=== PATIENT | female | born 1955 | race Caucasian/White ===

== ENCOUNTER 2023-08-21 10:40 | Inpatient (IN) | payer OTHER, MEDICAID ==
[~2023-08-21] VITALS: Ht 167.6 cm; Wt 87.7 kg
[2023-08-21] MEDS ORDERED: LISI20TA28 PO (10:52)
[2023-08-21] MEDS: normal saline 1000ML IV soln IVB ONE ×3 (11:36→14:34)
[2023-08-21 12:10] LABS: BASOPHILS # (AUTO) 0.1 X10'3 (0-0.2); BASOPHILS % (AUTO) 1.2 % (0-1); EOSINOPHILS # (AUTO) 0.3 X10'3 (0-0.9); EOSINOPHILS % (AUTO) 3.6 % (0-6); HEMATOCRIT 41.8 % (35.0-45.0); LYMPHOCYTES # (AUTO) 1.2 X10'3 (1.1-4.8); LYMPHOCYTES % (AUTO) 12.8 % (21-51); MEAN CORPUSCULAR HEMOGLOBIN 29.9 PG (27.0-31.0); MEAN CORPUSCULAR HGB CONC 33.5 g/dL (33.0-36.5); MEAN CORPUSCULAR VOLUME 89.3 FL (78-98); MEAN PLATELET VOLUME 8.2 FL (7.4-10.4); MONOCYTES # (AUTO) 0.7 X10'3 (0-0.9); MONOCYTES % (AUTO) 7.5 % (2-12); NEUTROPHILS # (AUTO) 6.8 X10'3 (1.8-7.7); NEUTROPHILS % (AUTO) 74.9 % (42-75); PLATELET COUNT 220 X10'3 (140-440); RED BLOOD COUNT 4.68 X10'6 (4.20-5.60); RED CELL DISTRIBUTION WIDTH 13.3 % (11.5-14.5); WHITE BLOOD COUNT 9.1 X10'3 (4.5-11.0)
[2023-08-21 12:35] LABS: ALBUMIN 3.6 G/DL (3.4-5.0); ANION GAP 13 (8-16); BLOOD UREA NITROGEN 12 MG/DL (7-18); BUN/CREATININE RATIO 7.7 (10.0-20.0); CHLORIDE 107 MMOL/L (99-107); CREATININE 1.55 MG/DL (0.40-0.90); GLUCOSE 98 MG/DL (70-104); POTASSIUM 3.2 MMOL/L (3.5-5.1); PRO BRAIN NATRIURETIC PEPTIDE 97 PG/ML (0-125); SODIUM 143 MMOL/L (135-145); TOTAL CARBON DIOXIDE 23.5 MMOL/L (24-32); eCRCL 32 ML/MIN; eGFR 33 ML/MIN
[2023-08-21] MEDS: lisinopril 10 MG tablet PO ONE (12:35)
[2023-08-21] MEDS ORDERED: OXYB5TAB21 PO (12:41)
[2023-08-21 13:27] LABS: D-DIMER 7.72 MG/L FEU (0-0.50)
[2023-08-21] MEDS ORDERED: heparin 10,000 units/1 ML INJ IV ONE (14:10)
[2023-08-21] MEDS ORDERED: iohexol 350MG/ML 100ml bottle IV ONE (14:32)
[2023-08-21 14:35] LABS: APTT 25 SECONDS (22-32); PROTHROMBIN TIME 10.9 SECONDS (9.0-12.0)
[2023-08-21] MEDS: aspirin 81mg tab.chew PO ONE (14:36)
[2023-08-21] MEDS: heparin 10,000 units/1 ML INJ IV ONE (15:04)
[2023-08-21] MEDS: MESSAGE TO NURSING IV ONE ×2 (15:05→23:03)
[2023-08-21] MEDS: heparin 25,000 UNIT/250ml bag 250 ML IV PRN (15:06)
[2023-08-21] MEDS ORDERED: ondansetron/PF 4mg/2ml inj IV PRN (15:35)
[2023-08-21] MEDS ORDERED: bisacodyl 10mg suppository rectal RC PRN (15:35)
[2023-08-21] MEDS ORDERED: HYDROcodone/acetaminophen 5mg/325mg tablet PO PRN (15:35)
[2023-08-21] MEDS ORDERED: diphenhydrAMINE 25mg capsule PO PRN (15:35)
[2023-08-21] MEDS ORDERED: diphenhydrAMINE 50 mg/ml inj IV PRN (15:35)
[2023-08-21] MEDS ORDERED: mag hydrox/Alum hydrox/simeth 30ml oral suspension PO PRN (15:35)
[2023-08-21] MEDS ORDERED: acetaminophen 325mg tablet PO PRN ×2 (15:35)
[2023-08-21] MEDS ORDERED: ondansetron 4mg rapidly disintigrating tab PO PRN (15:35)
[2023-08-21] MEDS ORDERED: magnesium hydroxide 30ml (MOM) UD suspension PO PRN (15:35)
[2023-08-21] MEDS: normal saline 1000ml 1,000 ML IV SCH (15:35)
[2023-08-21] MEDS ORDERED: morphine 2 MG/ML inj. syringe IV PRN ×2 (15:35)
[2023-08-21] MEDS ORDERED: HYDROcodone/acetaminophen 10/325mg tab PO PRN (15:35)
[2023-08-21] MEDS ORDERED: potassium Cl 20 mEq SR tablet PO PRN (15:40)
[2023-08-21] MEDS ORDERED: potassium Cl 40MEQ/1/2NS 520ml 520 ML IV PRN (15:40)
[2023-08-21 16:35] LABS: CREATINE KINASE 31 U/L (26-192); LIPASE 39 U/L (16-77); PHOSPHORUS 1.9 MG/DL (2.3-4.5); THYROID STIMULATING HORMONE 1.21 ulU/ml (0.34-4.50)
[2023-08-21] MEDS ORDERED: sodium phosphate inj. 30 MMOL in dextrose 5%-water 250 ML IV PRN (17:35)
[2023-08-21] MEDS ORDERED: Neutra Phos packet PO PRN (17:35)
[2023-08-21] MEDS ORDERED: sodium phosphate inj. 15 MMOL in dextrose 5%-water 250 ML IV PRN (17:35)
[2023-08-21] MEDS: potassium Cl 20 mEq SR tablet PO STA (17:41)
[2023-08-21 19:30] VITALS: BP 164/90; PULSE 81; RESP 26; TEMP 98; O2SAT 97
[2023-08-21 19:36] LABS: PRO BRAIN NATRIURETIC PEPTIDE 299 PG/ML (0-125)
[2023-08-21] MEDS: docusate sod 100mg capsule PO SCH (19:44)
[2023-08-21 20:00] VITALS: RESP 26; O2SAT 94
[2023-08-21] MEDS ORDERED: temazepam 15mg capsule PO PRN (21:00)
[2023-08-21 22:00] VITALS: BP 155/89; PULSE 75; RESP 16; TEMP 98.3; O2SAT 96
[2023-08-21] MEDS: potassium Cl 20 mEq SR tablet PO PRN (23:11)
[2023-08-21] MEDS: K and/or MAG REPLACEMENT MC SCH (23:14)
[2023-08-22] VITALS (11 sets, daily range): BP systolic 145–181; BP diastolic 73–95; PULSE 61–78; RESP 15–26; TEMP 97–98.3; O2SAT 94–99
[2023-08-22 02:38] LABS: BASOPHILS # (AUTO) 0.1 X10'3 (0-0.2); BASOPHILS % (AUTO) 1.3 % (0-1); EOSINOPHILS # (AUTO) 0.4 X10'3 (0-0.9); EOSINOPHILS % (AUTO) 4.1 % (0-6); HEMATOCRIT 38.6 % (35.0-45.0); LYMPHOCYTES # (AUTO) 1.6 X10'3 (1.1-4.8); LYMPHOCYTES % (AUTO) 17.1 % (21-51); MEAN CORPUSCULAR HEMOGLOBIN 29.9 PG (27.0-31.0); MEAN CORPUSCULAR HGB CONC 33.7 g/dL (33.0-36.5); MEAN CORPUSCULAR VOLUME 88.7 FL (78-98); MEAN PLATELET VOLUME 8.1 FL (7.4-10.4); MONOCYTES # (AUTO) 0.6 X10'3 (0-0.9); MONOCYTES % (AUTO) 6.8 % (2-12); NEUTROPHILS # (AUTO) 6.7 X10'3 (1.8-7.7); NEUTROPHILS % (AUTO) 70.7 % (42-75); PLATELET COUNT 213 X10'3 (140-440); RED BLOOD COUNT 4.35 X10'6 (4.20-5.60); RED CELL DISTRIBUTION WIDTH 13.7 % (11.5-14.5); WHITE BLOOD COUNT 9.5 X10'3 (4.5-11.0)
[2023-08-22 02:56] LABS: ALANINE AMINOTRANSFERASE 21 U/L (12-78); ALBUMIN/GLOBULIN RATIO 0.8 (1.1-1.5); ALKALINE PHOSPHATASE 107 IU/L (46-116); ANION GAP 5 (8-16); ASPARTATE AMINO TRANSFERASE 14 U/L (10-37); BILIRUBIN,TOTAL 0.4 MG/DL (0.1-1.0); BLOOD UREA NITROGEN 11 MG/DL (7-18); BUN/CREATININE RATIO 7.6 (10.0-20.0); CALCIUM 8.9 MG/DL (8.5-10.1); CHLORIDE 111 MMOL/L (99-107); CHOL/HDL RATIO 3.3 (0.00-4.99); CHOLESTEROL 137 MG/DL (0-200); CREATININE 1.45 MG/DL (0.40-0.90); GLUCOSE 108 MG/DL (70-104); HDL CHOLESTEROL 42 MG/DL (35-60); LDL CHOLESTEROL 79 MG/DL (50-100); SODIUM 143 MMOL/L (135-145); TOTAL CARBON DIOXIDE 26.9 MMOL/L (24-32); TOTAL PROTEIN 6.6 G/DL (6.4-8.2); TRIGLYCERIDES 109 MG/DL (20-135); eCRCL 34 ML/MIN; eGFR 36 ML/MIN
[2023-08-22] MEDS: MESSAGE TO NURSING IV ONE ×4 (03:00→18:33)
[2023-08-22] MEDS: pantoprazole 40mg Tablet.DR PO SCH (08:28)
[2023-08-22] MEDS: lisinopril 20mg tablet PO SCH (11:04)
[2023-08-22] MEDS: oxybutynin 5mg tablet PO SCH (11:04)
[2023-08-22] MEDS: hydrALAZINE 20mg/ml inj. IV PRN (13:54)
[2023-08-23] VITALS (9 sets, daily range): BP systolic 142–180; BP diastolic 73–94; PULSE 60–84; RESP 16–22; TEMP 97.1–98.7; O2SAT 94–99
[2023-08-23] MEDS: heparin 10,000 units/1 ML INJ IV PRN (01:16)
[2023-08-23] MEDS: MESSAGE TO NURSING IV ONE ×2 (01:24→10:33)
[2023-08-23 06:34] LABS: BASOPHILS # (AUTO) 0.1 X10'3 (0-0.2); BASOPHILS % (AUTO) 1.2 % (0-1); EOSINOPHILS # (AUTO) 0.4 X10'3 (0-0.9); EOSINOPHILS % (AUTO) 5.1 % (0-6); HEMATOCRIT 38.3 % (35.0-45.0); LYMPHOCYTES # (AUTO) 1.7 X10'3 (1.1-4.8); LYMPHOCYTES % (AUTO) 20.3 % (21-51); MEAN CORPUSCULAR HEMOGLOBIN 30.4 PG (27.0-31.0); MEAN CORPUSCULAR VOLUME 89.3 FL (78-98); MEAN PLATELET VOLUME 8.4 FL (7.4-10.4); MONOCYTES # (AUTO) 0.6 X10'3 (0-0.9); MONOCYTES % (AUTO) 6.9 % (2-12); NEUTROPHILS # (AUTO) 5.6 X10'3 (1.8-7.7); NEUTROPHILS % (AUTO) 66.5 % (42-75); PLATELET COUNT 197 X10'3 (140-440); RED BLOOD COUNT 4.29 X10'6 (4.20-5.60); RED CELL DISTRIBUTION WIDTH 13.3 % (11.5-14.5); WHITE BLOOD COUNT 8.4 X10'3 (4.5-11.0)
[2023-08-23 06:47] LABS: ALANINE AMINOTRANSFERASE 20 U/L (12-78); ALBUMIN 2.9 G/DL (3.4-5.0); ALBUMIN/GLOBULIN RATIO 0.9 (1.1-1.5); ALKALINE PHOSPHATASE 92 IU/L (46-116); ANION GAP 8 (8-16); ASPARTATE AMINO TRANSFERASE 13 U/L (10-37); BILIRUBIN,TOTAL 0.4 MG/DL (0.1-1.0); BLOOD UREA NITROGEN 14 MG/DL (7-18); BUN/CREATININE RATIO 10.9 (10.0-20.0); CALCIUM 8.4 MG/DL (8.5-10.1); CHLORIDE 110 MMOL/L (99-107); CREATININE 1.29 MG/DL (0.40-0.90); GLUCOSE 96 MG/DL (70-104); POTASSIUM 4.1 MMOL/L (3.5-5.1); SODIUM 142 MMOL/L (135-145); TOTAL CARBON DIOXIDE 24.5 MMOL/L (24-32); TOTAL PROTEIN 6.3 G/DL (6.4-8.2); eCRCL 39 ML/MIN; eGFR 41 ML/MIN
[2023-08-23] MEDS ORDERED: morphine 2 MG/ML inj. syringe IV PRN ×2 (12:10)
[2023-08-23] MEDS ORDERED: HYDROcodone/acetaminophen 10/325mg tab PO PRN (12:10)
[2023-08-23] MEDS ORDERED: HYDROcodone/acetaminophen 5mg/325mg tablet PO PRN (12:10)
[2023-08-23] MEDS: amLODIPine 5mg tablet PO SCH (20:18)
[2023-08-23] MEDS: polyethylene glycol 3350 17gm powd pack PO SCH (20:19)
[2023-08-23] MEDS: apixaban 5mg tablet PO SCH (20:19)
[2023-08-24 06:00] VITALS: BP 156/87; PULSE 72; RESP 18; TEMP 97.7; O2SAT 97
[2023-08-24 06:26] LABS: BASOPHILS # (AUTO) 0.1 X10'3 (0-0.2); BASOPHILS % (AUTO) 1.2 % (0-1); EOSINOPHILS # (AUTO) 0.5 X10'3 (0-0.9); EOSINOPHILS % (AUTO) 6.4 % (0-6); HEMATOCRIT 38.8 % (35.0-45.0); LYMPHOCYTES # (AUTO) 1.2 X10'3 (1.1-4.8); MEAN CORPUSCULAR HGB CONC 33.7 g/dL (33.0-36.5); MEAN CORPUSCULAR VOLUME 89.1 FL (78-98); MONOCYTES # (AUTO) 0.5 X10'3 (0-0.9); MONOCYTES % (AUTO) 7.3 % (2-12); NEUTROPHILS # (AUTO) 4.8 X10'3 (1.8-7.7); NEUTROPHILS % (AUTO) 68.1 % (42-75); PLATELET COUNT 237 X10'3 (140-440); RED BLOOD COUNT 4.35 X10'6 (4.20-5.60); RED CELL DISTRIBUTION WIDTH 13.4 % (11.5-14.5); WHITE BLOOD COUNT 7.1 X10'3 (4.5-11.0)
[2023-08-24 06:27] LABS: ALANINE AMINOTRANSFERASE 23 U/L (12-78); ALBUMIN 2.9 G/DL (3.4-5.0); ALBUMIN/GLOBULIN RATIO 0.9 (1.1-1.5); ALKALINE PHOSPHATASE 92 IU/L (46-116); ANION GAP 7 (8-16); ASPARTATE AMINO TRANSFERASE 16 U/L (10-37); BILIRUBIN,TOTAL 0.4 MG/DL (0.1-1.0); BLOOD UREA NITROGEN 12 MG/DL (7-18); BUN/CREATININE RATIO 8.5 (10.0-20.0); CALCIUM 8.5 MG/DL (8.5-10.1); CHLORIDE 108 MMOL/L (99-107); CREATININE 1.42 MG/DL (0.40-0.90); GLUCOSE 91 MG/DL (70-104); POTASSIUM 3.4 MMOL/L (3.5-5.1); SODIUM 142 MMOL/L (135-145); TOTAL CARBON DIOXIDE 26.6 MMOL/L (24-32); TOTAL PROTEIN 6.3 G/DL (6.4-8.2); eCRCL 35 ML/MIN; eGFR 37 ML/MIN
[2023-08-24 08:00] VITALS: RESP 18; O2SAT 97
[2023-08-24 11:00] VITALS: BP 158/75; PULSE 84; RESP 24; TEMP 97.5; O2SAT 99
[2023-08-24] MEDS ORDERED: NOR5T PO (12:56)
[2023-08-24] MEDS ORDERED: APIX5TAB3 PO (12:56)
[2023-08-30] MEDS ORDERED: apixaban 5mg tablet PO SCH (20:00)
== END 2023-08-24 15:06 | disposition home or self-care (01) | DRG 280 ==
LOC: ER 10:40 → ED HOLD 15:47 → PCU 3S 19:24
PROVIDERS: ADMIT Family Medicine; ATTEND Family Medicine
PROC: B32T1ZZ Computerized Tomography (CT Scan) of Left Pulmonary Artery using Low Osmolar Contrast (ICD-10-PCS; principal; 2023-08-21)
PROC: B3201ZZ Computerized Tomography (CT Scan) of Thoracic Aorta using Low Osmolar Contrast (ICD-10-PCS; 2023-08-21)
PROC: B32S1ZZ Computerized Tomography (CT Scan) of Right Pulmonary Artery using Low Osmolar Contrast (ICD-10-PCS; 2023-08-21)
DX: I16.1 Hypertensive emergency (principal); I26.92 Saddle embolus of pulmonary artery without acute cor pulmonale; I21.A1 Myocardial infarction type 2; J96.00 Acute respiratory failure, unspecified whether with hypoxia or hypercapnia; I67.4 Hypertensive encephalopathy; N17.9 Acute kidney failure, unspecified; I82.401 Acute embolism and thrombosis of unspecified deep veins of right lower extremity; I12.9 Hypertensive chronic kidney disease with stage 1 through stage 4 chronic kidney disease, or unspecified chronic kidney disease; N18.9 Chronic kidney disease, unspecified; I27.20 Pulmonary hypertension, unspecified; E87.6 Hypokalemia; E83.39 Other disorders of phosphorus metabolism; R32 Unspecified urinary incontinence; N32.81 Overactive bladder; Z79.01 Long term (current) use of anticoagulants
CPT/HCPCS: 36415; 70450; 71045; 71275; 80048; 80053; 80061; 82550; 83036; 83690; 83735; 83880; 84100; 84443; 84484; 85025; 85379; 85610; 85730; 87081; 93005; 93306; 93970; 96365; 96376; 97116; 97161; 97530; 99291; A4615; A6590; G0378; J0360; J1644; J7030; Q9967